=== PATIENT | female | born 1975 | race Hispanic/Latino ===

== ENCOUNTER 2023-04-23 04:27 | Emergency (ER) | payer BC, OTHER ==
[~2023-04-23] VITALS: Ht 162.6 cm; Wt 96.2 kg
[~2023-04-23 04:27] MED LIST: ARIP5TAB13 PO; ATOR40TA69 PO; CARV12.580 PO; CYCL10TA16 PO; DEXL60CA3 PO; DULO60CA45 PO; DULO60CA64 PO; EXEN5PEN2 SQ; FENO145T PO; GABA300S3 PO; GABA800T9 PO; HYDR-3421 PO; HYDR25TA PO; INSU100C6 SQ; INSU100V12 SQ; INSU100V42 SQ; KETO10TA2 PO; LEVO175C2 PO; LEVO200 PO; LIDOP TP; LISI40TA9 PO; METF-446 PO; ONDA4TAB10 PO; PANT40GR PO; PRED20TA3 PO; PREG75CA76 PO; RIVA20TA PO; SEMA1PEN3 SQ; TRAZ-185 PO
[2023-04-23] MEDS: 0.9%NACL 1000ML 1,000 ML IV ONE (05:01)
[2023-04-23] MEDS: KETOROLAC 30MG VIAL (30MG/ML) IVP ONE (05:01)
[2023-04-23 05:02] LABS: BASOPHILS # (AUTO) 0.01 K/uL (0.00-0.20); BASOPHILS % (AUTO) 0.1 % (0.0-5.0); EOSINOPHILS # (AUTO) 0.01 K/uL (0.00-0.70); EOSINOPHILS % (AUTO) 0.1 % (0.0-8.0); HEMATOCRIT 35.4 % (36-48); IMMATURE GRANULOCYTE ABSOLUTE 0.02 K/uL (0-1); LYMPHOCYTES % (AUTO) 23.8 % (21.0-51.0); MEAN CORPUSCULAR HGB CONC 33.3 g/dL (32.0-36.0); MONOCYTES # (AUTO) 0.5 K/uL (0.1-1.0); MONOCYTES % (AUTO) 5.6 % (3.0-13.0); NEUTROPHILS # (AUTO) 5.8 K/uL (1.8-7.7); NEUTROPHILS % (AUTO) 70.2 % (40.0-77.0); PLATELET COUNT (AUTO) 334 K/uL (130-400); RED BLOOD CELL COUNT(AUTO) 4.37 MIL/uL (4.00-5.50); RED CELL DISTRIBUTION WIDTH 14.1 % (11.0-15.5); WHITE BLOOD COUNT (AUTO) 8.3 K/uL (4.8-10.8)
[2023-04-23] MEDS: KETOROLAC 30MG VIAL (30MG/ML) ONE (05:02)
[2023-04-23 05:13] LABS: CREATININE 0.9 mg/dL (0.5-1.5); POTASSIUM 3.6 mmol/L (3.5-5.1)
[2023-04-23 05:17] LABS: ALBUMIN 3.4 g/dL (3.5-5.0); BILIRUBIN,TOTAL 0.5 mg/dL (0.2-1.0); TOTAL PROTEIN, SERUM 7.6 g/dL (6.0-8.3)
[2023-04-23] MEDS: ONDANSETRON 4MG INJ IVP ONE (05:38)
[2023-04-23] MEDS: MORPHINE 4 MG SYG IVP ONE (05:39)
[2023-04-23] MEDS ORDERED: IOHEXOL 350 MG/ML 100ML INFUS..BTL IV ONE (06:09)
[2023-04-23] MEDS: 0.9%NACL 1000ML 1,000 ML IV SCH (07:10)
[2023-04-23 07:12] VITALS: BP 152/75; PULSE 83; RESP 19; O2SAT 98
== END 2023-04-23 07:31 | disposition short-term general hospital (02) ==
LOC: EDH 04:27
DX: M21.371 Foot drop, right foot (principal); I10 Essential (primary) hypertension; E11.9 Type 2 diabetes mellitus without complications; E78.00 Pure hypercholesterolemia, unspecified; Z79.84 Long term (current) use of oral hypoglycemic drugs; Z79.899 Other long term (current) drug therapy; Z98.890 Other specified postprocedural states; Z90.49 Acquired absence of other specified parts of digestive tract
CPT/HCPCS: 99285; 96374; 72133; 96361; 96375; 80053; 84703; 85025; 87040 ×2; 83605; 36415; J7030; J2405; J2270; J1885; Q9967

== ENCOUNTER 2024-04-26 22:21 | Emergency (ER) | payer BC, OTHER ==
[~2024-04-26] VITALS: Ht 162.6 cm; Wt 102.1 kg
[~2024-04-26 22:21] MED LIST changes: -ARIP5TAB13 PO; -ATOR40TA69 PO; -CARV12.580 PO; -CYCL10TA16 PO; -DEXL60CA3 PO; -DULO60CA45 PO; -DULO60CA64 PO; -EXEN5PEN2 SQ; -FENO145T PO; -GABA300S3 PO; -GABA800T9 PO; -HYDR-3421 PO; -HYDR25TA PO; -INSU100C6 SQ; -INSU100V12 SQ; -INSU100V42 SQ; -KETO10TA2 PO; -LEVO200 PO; -LIDOP TP; -LISI40TA9 PO; -METF-446 PO; -ONDA4TAB10 PO; -PRED20TA3 PO; -PREG75CA76 PO; -RIVA20TA PO; -SEMA1PEN3 SQ; -TRAZ-185 PO
[2024-04-26 23:32] LABS: BASOPHILS # (AUTO) 0.03 K/uL (0.00-0.20); BASOPHILS % (AUTO) 0.4 % (0.0-5.0); EOSINOPHILS # (AUTO) 0.03 K/uL (0.00-0.70); EOSINOPHILS % (AUTO) 0.4 % (0.0-8.0); HEMATOCRIT 36.3 % (36-48); IMMATURE GRANULOCYTE ABSOLUTE 0.03 K/uL (0-1); LYMPHOCYTES # (AUTO) 1.7 K/uL (1.0-4.8); LYMPHOCYTES % (AUTO) 23.6 % (21.0-51.0); MEAN CORPUSCULAR HEMOGLOBIN 24.8 pg (27.0-33.0); MEAN CORPUSCULAR HGB CONC 32.8 g/dL (32.0-36.0); MEAN CORPUSCULAR VOLUME 75.8 fL (79-99); MONOCYTES # (AUTO) 0.5 K/uL (0.1-1.0); MONOCYTES % (AUTO) 7.2 % (3.0-13.0); NEUTROPHILS # (AUTO) 4.9 K/uL (1.8-7.7); PLATELET COUNT (AUTO) 279 K/uL (130-400); RED BLOOD CELL COUNT(AUTO) 4.79 MIL/uL (4.00-5.50); WHITE BLOOD COUNT (AUTO) 7.3 K/uL (4.8-10.8)
[2024-04-26 23:49] LABS: CREATININE 0.8 mg/dL (0.5-1.0); MAGNESIUM 1.4 mg/dL (1.80-2.40); POTASSIUM 3.9 mmol/L (3.5-5.1)
[2024-04-26] MEDS: ketOROlac 15MG/ML VIAL (15MG/ML) IV ONE (23:53)
[2024-04-27] MEDS: 0.9%NACL 1000ML 1,000 ML IV ONE ×2 (00:17→02:01)
[2024-04-27 00:38] LABS: APPEARANCE,URINE CLOUDY (CLEAR); BACTERIA,URINE RARE /HPF (None Seen); BILIRUBIN,URINE NEGATIVE (NEGATIVE); COLOR,URINE LIGHT-YELLOW (YELLOW); GLUCOSE, URINE (UA) >=1000 mg/dL (NEGATIVE); KETONES,URINE NEGATIVE (NEGATIVE); LEUKOCYTE ESTERASE ,URINE 75 Leu/uL (NEGATIVE); NITRATE,URINE NEGATIVE (NEGATIVE); PH,URINE 5.5 (5.0-8.0); PROTEIN,URINE 50 mg/dL (NEGATIVE); SQUAMOUS EPITHELIAL CELL,UR RARE /HPF (0-2); UROBILINOGEN,URINE 0.2 mg/dL (0.2-1.0)
--- NOTE | 2024-04-27 01:32 | ERN ---
General Chief Complaint: Weakness Stated Complaint: BODY ACHES, WEAKNESS Time Seen by MD: 23:05 Time Seen by Midlevel: 23:05 Source: patient History of Present Illness Initial Comments Patient is a 25-year-old female with no significant past medical history presenting to the emergency department with low back pain that started three weeks ago. 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 Denies any fall or direct injury to the area. The pain is rated eight on a 0-10 scale. She was not taking any [id number]-[id number] medications. Has not seen a primary care doctor for this issue. Denies any fever, chills, dysuria, hematuria, or any other symptoms at this time. Allergies: Coded Allergies: No Known Drug Allergies (Unverified Allergy, Unknown, 10/23/16) Home Meds Reported Medications Levothyroxine Sodium (Levothyroxine) 175 Mcg Capsule, 175 MCG PO DAILY, CAP 02/11/23 Pantoprazole Sodium (Pantoprazole Sodium) 40 Mg Granpkt.dr, 40 MG PO DAILY, PACK 02/11/23 Past Medical History Past Medical History: Diabetes-Type II, High Cholesterol, Hypertension Past Surgical History: Other Surgical History Other: BACK SURGERY Family History Family History: HTN Social History Social History: Negative ROS Dictation CONSTITUTIONAL: Negative except for HPI HEAD/FACE: Negative except for HPI EENT: Negative except for HPI RESPIRATORY: Negative except for HPI GASTROINTESTINAL/ABDOMINAL: Negative except for HPI GENITOURINARY: Negative except for HPI MUSCULOSKELETAL: Negative except for HPI INTEGUMENTARY: Negative except for HPI NEUROLOGICAL/PSYCH: Negative except for HPI HEMATOLOGIC/LYMPHATIC: Negative except for HPI All Systems Negative, Except as noted above. 13 point review of systems assessed and all negative except for above. Physical Exam Physical Exam Dictation Vital Signs reviewed General Appearance: Alert, oriented x 3, no acute distress, well developed, nourished. Head and Face: non-traumatic. Eyes: PERRL, pink conjunctivas, eyelid no trauma, anterior chamber with arcus senilis. Ears: Pinnas intact and no signs of trauma or erythema ear canals clear and no discharge TM no erythema Nose: No discharge, no bleeding. Oropharynx: Mouth normal, tongue pink, pharynx clear,no erythema, tonsils no exudates, no abscesses noted, mucous membrane moist Neck: Supple, non-tender, no thyromegaly, no masses, no JVD, no bruits Breast:Deferred Chest:No tenderness, no crepitus, no paradoxical movement, no retractions Lungs:Clear, well-ventilated, symmetric, no rales, no wheezing, no rhonchi, no stridor, good breath sounds bilaterally Heart: Regular rate, regular rhythm, no murmur, no gallops Vascular: no peripheral edema, Abdomen: Soft, positive bowel sounds, nondistended, no guarding, nontender, no rebound, no masses no hepatomegaly, no splenomegaly, no Sanchez's sign, no hernias. Rectal: Deferred Genital: Deferred Neurological: Normal speech, motor function intact, sensory function intact Musculoskeletal: Neck nontender, full range of motion, back nontender, full range of motion, Extremities: nontender, full range of motion Skin: Color pink, dry, no turgor, no rash, no lacerations, no abrasions, no contusions. Lymphatic: Deferred Results Laboratory and Microbiology Lab and Micro Result Laboratory Tests Test 04/26/24 22:44 04/26/24 23:34 04/26/24 23:50 04/26/24 23:54 White Blood Count 7.3 K/uL (4.8-10.8) Red Blood Count 4.79 MIL/uL (4.00-5.50) Hemoglobin 11.9 g/dL (12.0-16.0) L Hematocrit 36.3 % (36-48) Mean Corpuscular Volume 75.8 fL (79-99) L Mean Corpuscular Hemoglobin 24.8 pg (27.0-33.0) L Mean Corpuscular Hemoglobin Concent 32.8 g/dL (32.0-36.0) Red Cell Distribution Width 14.0 % (11.0-15.5) Platelet Count 279 K/uL (130-400) Mean Platelet Volume 10.6 fL (7.5-10.5) H Immature Granulocyte % (Auto) 0.4 % (0-1) Neutrophils (%) (Auto) 68.0 % (40.0-77.0) Lymphocytes (%) (Auto) 23.6 % (21.0-51.0) Monocytes (%) (Auto) 7.2 % (3.0-13.0) Eosinophils (%) (Auto) 0.4 % (0.0-8.0) Basophils (%) (Auto) 0.4 % (0.0-5.0) Neutrophils # (Auto) 4.9 K/uL (1.8-7.7) Lymphocytes # (Auto) 1.7 K/uL (1.0-4.8) Monocytes # (Auto) 0.5 K/uL (0.1-1.0) Eosinophils # (Auto) 0.03 K/uL (0.00-0.70) Basophils # (Auto) 0.03 K/uL (0.00-0.20) Absolute Immature Granulocyte (auto 0.03 K/uL (0-1) Nucleated Red Blood Cells 0.0 % (0.0-0.19) Red Blood Cell Morphology See comments Sodium Level 133 mmol/L (136-145) L Potassium Level 3.9 mmol/L (3.5-5.1) Chloride Level 97 mmol/L (101-111) L Carbon Dioxide Level 27 mmol/L (21-32) Blood Urea Nitrogen 14 mg/dL (7-18) Creatinine 0.8 mg/dL (0.5-1.0) Glomerular Filtration Rate Calc 91 mL/min (>90) Random Glucose 399 mg/dL (70-105) H Total Calcium 9.3 mg/dL (8.5-10.1) Magnesium Level 1.40 mg/dL (1.80-2.40) L Whole Blood Glucose 366 MG/DL (70-110) H Whole Blood Ketones Quantitative 0.3 mmol/L (0.0-0.6) Lactic Acid Level 1.7 mmol/L (0.8-2.5) Urine Color LIGHT-YELLOW (YELLOW) Urine Appearance CLOUDY (CLEAR) H Urine pH 5.5 (5.0-8.0) Urine Specific [place] 1.014 (1.001-1.031) Urine Protein 50 mg/dL (NEGATIVE) H Urine Glucose (UA) >=1000 mg/dL (NEGATIVE) H Urine Ketones NEGATIVE mg/dL (NEGATIVE) Urine Occult Blood +- (TRACE) (NEGATIVE) H Urine Nitrate NEGATIVE (NEGATIVE) Urine Bilirubin NEGATIVE mg/dL (NEGATIVE) Urine Urobilinogen 0.2 mg/dL (0.2-1.0) Urine Leukocyte Esterase 75 Hali/uL (NEGATIVE) H Urine RBC 2-5 /HPF (0-1) H Urine WBC 11-25 /HPF (0-1) H Urine Squamous Epithelial Cells RARE /HPF (0-2) Urine Bacteria RARE /HPF (None Seen) Test 04/27/24 00:27 04/27/24 01:54 04/27/24 02:39 Whole Blood Glucose 331 MG/DL (70-110) H 324 MG/DL (70-110) H 267 MG/DL (70-110) H Labs Reviewed?: Yes MDM MDM: Patient is a 48-year-old female with a past medical history of uncontrolled diabetes presenting to the emergency department for evaluation of generalized pain. Patient states she has pain all over her entire body. She states these symptoms are similar to the previous time she was in DKA. Denies any nausea vomiting, chest pain, or any other symptoms at this time. Physical examination patient is in no acute distress. Vital signs are stable. Patient is nontoxic appearing. CBC shows no leukocytosis. Hemoglobin is stable at 11.9. Platelets are normal at 279. Chemistries show a normal anion gap. Sugar is 399. Bicarb was normal at 27. Kidney function is normal. Lactic acid is negative. Ketones are negative. The patient was not in DKA at this time. Urinalysis shows glucosuria with trace amount of leuk esterase however the patient was not having any urinary symptoms. Patient was given 2 L of IV fluids and 5 units of regular insulin. Glucose trending downward with a sugar of 267. Patient will be discharged home with supportive management. Differential diagnosis: DKA, uncontrolled diabetes, electrolyte abnormality, dehydration There are no social concerns with this patient. Prescription drug management Prescriptions will include: None Medical management and examination interpretation discussions were had by me with other qualified healthcare professionals as indicated for the patient's care. ED Course Orders Procedure Category Date Status Time Cbc With Differential LAB 04/26/24 Complete 23:24 Basic Metabolic Panel LAB 04/26/24 Complete 23:24 Magnesium LAB 04/26/24 Complete 23:24 0.9%Nacl 1000ml (Ns PHA 04/26/24 Complete 1000ml) 23:30 Lactic Acid (Removed) LAB 04/26/24 Complete 23:40 Ketorolac PHA 04/27/24 Complete Tromethamine 15mg/Ml 00:00 Ketone Blood LAB 2/8/25 Complete Quantitative 23:40 Urinalysis LAB 04/26/24 Complete W/Microscopic 23:54 Culture Urine TRAM 04/26/24 In Process 23:50 0.9%Nacl 1000ml (Ns PHA 04/27/24 Complete 1000ml) 01:00 Insulin Regular, PHA 04/27/24 Complete Human 3ml (Humulin R 02:00 Current Medications Medications (Trade) Dose Ordered Sig/Shiraz Route PRN Reason Start Time Stop Time Status Last Admin Dose Admin Insulin Human Regular (humuLIN R 100 UNIT/ML 3ML) 5 unit ONCE ONCE SQ 04/27/24 02:00 04/27/24 02:01 DC 04/27/24 02:08 Ketorolac Tromethamine (toRADol) 15 mg ONCE ONCE IV 04/27/24 00:00 04/27/24 00:01 DC 04/26/24 23:53 Sodium Chloride 1,000 ml @ 0 mls/hr ONCE ONCE IV 04/26/24 23:30 04/26/24 23:31 DC 04/27/24 00:17 Sodium Chloride 1,000 ml @ 0 mls/hr ONCE ONCE IV 04/27/24 01:00 04/27/24 01:01 DC 04/27/24 02:01 Vital Signs Date Time Temp Pulse Resp B/P (MAP) Pulse Ox O2 Delivery O2 Flow Rate FiO2 04/27/24 02:21 99.1 91 17 137/77 100 Room Air* 0 21 04/26/24 22:23 99.7 105 17 171/104 100 Room Air 0 04/26/24 22:22 99.7 105 17 171/104 100 Room Air* 0 21 DX & DISP Disposition: Discharge Departure Impression: Primary Impression: Diabetes mellitus with hyperglycemia Condition: Stable Additional Instructions: Your blood work today shows an elevated glucose level of 399. At this time you are not in DKA. You were given IV fluids and your blood glucose is improving. You will need to follow up with your primary care doctor for further evaluation. Referrals: SELF,REFERRAL (PCP) I have reviewed the case, and I agree with, Diagnosis and Plan I performed the substantive portion of the visit. I have reviewed and personally made and approve the management plan that is documented in the note by myself or the J CARLOS. I acknowledge for responsibility for the patient's management plan. SHILA MCGEE Apr 27, 2024 01:32
[2024-04-27] MEDS: INSULIN humuLIN R 100 UNIT/ML 3ML SQ ONE (02:08)
--- NOTE | 2024-04-27 04:30 | NUR ---
FF UP WITH [facility] VIA PHONE CALL, STILL ON THE QUEUE FOR TRANSPORT
[2024-04-27 07:40] VITALS: BP 158/84; PULSE 89; RESP 16; TEMP 99.1; O2SAT 98
--- NOTE | 2024-04-27 08:41 | NUR ---
PER TC FROM DISPATCH, PT IS STILL ON THE LIST PENDING TRANSPORT TO HOME.
--- NOTE | 2024-04-27 09:39 | NUR ---
0930 PER GAYATHRI RN, [facility] CALLING BACK AGAIN REQUESTING FORM FOR PICK BE FAXED AGAIN, INFOMED CHARGE NURSE PRISCILLA BARROSO. PER CHARGE NURSE WILL SPEAK TO EMT ON ARRIVAL WITH ORIGINAL DOCUMENTATION. PT HAS BEEN WAITING FOR [employer]AT[employer]ER SINCE MIDNIGHT, FOURTH CALL FOR STATUS. PER [facility] DISPATCH PERSON WE ARE TOLD REPEATEDLY (PT IS ON THE LIST ON THE WAY, RE FAX DOCUMENTS AGAIN) TIME NOW 0938. STILL PENDING ARRIVAL OF EMT TRANSPORT UNIT.
--- NOTE | 2024-04-27 09:39 | NUR ---
PRISCILLA DAMON CHARGE NURSE CALLED AT 0817, FOR ETA STATUS, WAS TOLD DOCUMENTATION NEED TO BE FAXED AGAIN, WAS FAXED AT THAT TIME.
--- NOTE | 2024-04-27 10:01 | NUR ---
EMS ARRIVED FOR TRANSPORT, PT STABLE NO DISTRESS, VITALS WNL,NO C/O PAIN. PT DIAPER CHANGED PRIOR TO DISCHARGE, NO IV REMOVED CATHETER INTACT. PT AAAOX4, SPOKE TO HER MOTHER IS AWARE OF DISCHARGE IS WAITING FOR HER ARRIVAL AT HOME. PT TOOK HER PURSE AND PERSONAL BELONGINGS.
== END 2024-04-27 10:04 | disposition home or self-care (01) ==
LOC: EDH 22:21
DX: E11.65 Type 2 diabetes mellitus with hyperglycemia (principal); E78.00 Pure hypercholesterolemia, unspecified; I10 Essential (primary) hypertension; Z79.890 Hormone replacement therapy; Z79.899 Other long term (current) drug therapy
CPT/HCPCS: 99284; 96374; 83735; 80048; 85025; 87086 ×2; 87186; 82948 ×4; 83605; 82010 ×2; 81001; 36415; 96361; 96372; J1885; J7030 ×2; J1815

== ENCOUNTER 2024-07-28 12:22 | Emergency (ER) | payer OTHER ==
[~2024-07-28] VITALS: Ht 162.6 cm; Wt 103.4 kg
[~2024-07-28 12:22] MED LIST changes: -LEVO175C2 PO; +LEVO175C3 PO
[2024-07-28 12:24] VITALS: BP 141/79; PULSE 95; RESP 20; TEMP 98.5
[2024-07-28] MEDS ORDERED: CYCL-309 PO (12:38)
[2024-07-28] MEDS ORDERED: IBUP-2077 PO (12:38)
--- NOTE | 2024-07-28 12:40 | ERN ---
ED Note History of Present Illness Stated Complaint: BACK PAIN Chief Complaint: Low Back Pain/Injury Time Seen by MD: 12:25 Dictation: PATIENT IS A 49-YEAR-OLD FEMALE COMING IN VIA EMS COMPLAINING OF BILATERAL LOWER BACK PAIN POSTERIORLY THAT RADIATES DOWN BOTH LOWER EXTREMITIES. SHE STATES THE CHANGES ARE NOT NEW, SHE STATES SHE IS �STATUS POST LUMBAR SURGERY BY DR. MIKE AT [facility] TWO WEEKS AGO. � SHE DENIES ANY CHANGE IN BOWEL OR BLADDER FUNCTION STATES SHE DID NOT GO BACK TO THAT FACILITY BECAUSE �SHE WOULD NOT LIKE THE SERVICE�. SHE [place] JUST DOWN HERE VISITING HER MOTHER. SHE STATES THIS IS THE 2ND TIME �SHE HAS NEEDED NEUROSURGERY WHILE SHE IS VISITING HER MOTHER AND SHE GOES TO [facility]. Allergies: Coded Allergies: No Known Drug Allergies (Unverified Allergy, Unknown, 10/23/16) Home Meds Active Scripts Cyclobenzaprine HCl (Cyclobenzaprine HCl) 10 Mg Tablet, 1 TAB PO TID for muscle spasms for 10 Days, #30 TAB 0 Refills Prov:DAVIS SHERIFF NP 07/28/24 Ibuprofen (Ibuprofen 800 mg Tab) 800 Mg Tab, 800 MG PO Q8H PRN for fever or pain, #30 TAB 0 Refills Prov:DAVIS SHERIFF NP 07/28/24 Reported Medications Levothyroxine Sodium (Levothyroxine) 175 Mcg Capsule, 175 MCG PO DAILY, CAP 02/11/23 Pantoprazole Sodium (Pantoprazole Sodium) 40 Mg Granpkt.dr, 40 MG PO DAILY, PACK 02/11/23 Past Medical History Past Medical History: Diabetes-Type II, High Cholesterol, Hypertension Surgical History: Other Surgical History Other: BACK SURGERY Family History: HTN Social History: Negative History: Not Applicable RN Note Reviewed/Agreed w/PFSH: Yes Review of System Dictation CONSTITUTIONAL: NEGATIVE EXCEPT FOR HPI HEAD/FACE: NEGATIVE EXCEPT FOR HPI EENT: NEGATIVE EXCEPT FOR HPI RESPIRATORY: NEGATIVE EXCEPT FOR HPI GASTROINTESTINAL/ABDOMINAL: NEGATIVE EXCEPT FOR HPI GENITOURINARY: NEGATIVE EXCEPT FOR HPI MUSCULOSKELETAL: NEGATIVE EXCEPT FOR HPI BILATERAL LUMBAR PAIN WITH SCIATICA BILATERAL/CHRONIC INTEGUMENTARY: NEGATIVE EXCEPT FOR HPI NEUROLOGICAL/PSYCH: NEGATIVE EXCEPT FOR HPI HEMATOLOGIC/LYMPHATIC: NEGATIVE EXCEPT FOR HPI ALL SYSTEMS NEGATIVE, EXCEPT NOTED ABOVE. 13 POINT REVIEW OF SYSTEMS ASSESSED AND ALL NEGATIVE EXCEPT FOR ABOVE. Initial Vital Sign VS Vital Signs Date Time Temp Pulse Resp B/P (MAP) Pulse Ox O2 Delivery O2 Flow Rate FiO2 07/28/24 12:24 98.4 95 20 141/79 97 Room Air 0 Physical Exam Dictation VITAL SIGNS REVIEWED GENERAL APPEARANCE: ALERT, ORIENTED X 3, MODERATE ACUTE DISTRESS, WELL DEVELOPED, NOURISHED. HEAD AND FACE: NON-TRAUMATIC. EYES: PERRL, PINK CONJUNCTIVAS, EYELID NO TRAUMA, ANTERIOR CHAMBER WITH ARCUS SENILIS. EARS: PINNAS INTACT AND NO SIGNS OF TRAUMA OR ERYTHEMA EAR CANALS CLEAR AND NO DISCHARGE TM NO ERYTHEMA NOSE: NO DISCHARGE, NO BLEEDING. OROPHARYNX: MOUTH NORMAL, TONGUE PINK, PHARYNX CLEAR,NO ERYTHEMA, TONSILS NO EXUDATES, NO ABSCESSES NOTED, MUCOUS MEMBRANE MOIST NECK: SUPPLE, NON-TENDER, NO THYROMEGALY, NO MASSES, NO JVD, NO BRUITS BREAST:DEFERRED CHEST:NO TENDERNESS, NO CREPITUS, NO PARADOXICAL MOVEMENT, NO RETRACTIONS LUNGS:CLEAR, WELL-VENTILATED, SYMMETRIC, NO RALES, NO WHEEZING, NO RHONCHI, NO STRIDOR, GOOD BREATH SOUNDS BILATERALLY HEART: REGULAR RATE, REGULAR RHYTHM, NO MURMUR, NO GALLOPS VASCULAR: NO PERIPHERAL EDEMA, ABDOMEN: SOFT, POSITIVE BOWEL SOUNDS, NONDISTENDED, NO GUARDING, NONTENDER, NO REBOUND, NO MASSES NO HEPATOMEGALY, NO SPLENOMEGALY, NO SÁNCHEZ'S SIGN, NO HERNIAS. RECTAL: DEFERRED GENITAL: DEFERRED NEUROLOGICAL: NORMAL SPEECH, MOTOR FUNCTION INTACT, SENSORY FUNCTION INTACT MUSCULOSKELETAL: NECK NONTENDER, FULL RANGE OF MOTION, DIFFUSE LUMBOSACRAL TENDERNESS WITH WELL GRANULATING MIDLINE INCISION TO LUMBAR SPINE. EXTREMITIES: NONTENDER, FULL RANGE OF MOTION SKIN: COLOR PINK, DRY, NO TURGOR, NO RASH, NO LACERATIONS, NO ABRASIONS, NO CONTUSIONS. LYMPHATIC: DEFERRED Results (Laboratory/Radiology) Labs Reviewed?: Yes ED Course ED Course Orders Procedure Category Date Status Time Ketorolac 60mg/2ml PHA 07/28/24 Complete (Toradol 60mg/2ml) 13:00 Cyclobenzaprine Hcl PHA 07/28/24 Complete (Cyclobenzaprine Hcl 13:00 Dexamethasone 4mg/Ml PHA 07/28/24 Complete 1ml Vial (Dexametha 13:00 Current Medications Medications (Trade) Dose Ordered Sig/Shiraz Route PRN Reason Start Time Stop Time Status Last Admin Dose Admin Cyclobenzaprine HCl (Cyclobenzaprine HCl) 10 mg ONCE ONCE PO 07/28/24 13:00 07/28/24 13:01 DC Dexamethasone Sodium Phosphate (dexaMETHasone 4MG/ML 1ML VIAL) 8 mg ONCE ONCE IM 07/28/24 13:00 07/28/24 13:01 DC Ketorolac Tromethamine (toRADol 60MG/ 2ML) 60 mg ONCE ONCE IM 07/28/24 13:00 07/28/24 13:01 DC Vital Signs Date Time Temp Pulse Resp B/P (MAP) Pulse Ox O2 Delivery O2 Flow Rate FiO2 07/28/24 12:24 98.4 95 20 141/79 97 Room Air 0 1232/PATIENT AWARE THAT NO LABS OR IMAGING WE WILL BE INDICATED. SHE WILL BE GIVEN PAIN MEDS AND TOLD TO FOLLOW UP WITH DR. MIKE, HER SURGEON SOON POSSIBLE. Medical Decision Making MDM MEDICAL DISCHARGE MAKING IS BASED ON EMPIRIC TREATMENT FOR ACUTE LOW BACK PAIN WITH CHRONIC SCIATICA. PATIENT WILL BE DISCHARGED HOME WITH IBUPROFEN AND FLEXERIL TOLD TO CONTINUE ALL POSTSURGICAL INSTRUCTIONS FROM DR. MIKE FOLLOW UP WITH HIM IN THE NEXT 1-2 DAYS. DX & DISP Disposition: Discharge Departure Impression: Primary Impression: Acute exacerbation of chronic low back pain Additional Impressions: Chronic low back pain with bilateral sciatica, Status post lumbar surgery Condition: Stable Scripts Cyclobenzaprine HCl (Cyclobenzaprine HCl) 10 Mg Tablet 1 TAB PO TID for muscle spasms for 10 Days, #30 TAB 0 Refills Prov: DAVIS SHERIFF POULTRY HELPER 07/28/24 Ibuprofen (Ibuprofen 800 mg Tab) 800 Mg Tab 800 MG PO Q8H PRN for fever or pain, #30 TAB 0 Refills Prov: DAVIS SHERIFF POULTRY HELPER 07/28/24 Additional Instructions: FOLLOW-UP WITH PRIMARY CARE PROVIDER IN 1 TO 2 DAYS. TAKE MEDICATIONS DIRECTED HERE IN THE EMERGENCY ROOM. OKAY TO CONTINUE HOME MEDICATIONS UNLESS OTHERWISE DISCUSSED DURING YOUR VISIT IN THE EMERGENCY ROOM TODAY. RETURN TO YOUR NEAREST EMERGENCY ROOM IF SYMPTOMS WORSEN OR IF THERE IS NO IMPROVEMENT. CALL 911 IF YOU NEED IMMEDIATE ASSISTANCE. TAKE TYLENOL OR MOTRIN [id number] NEEDED AND IF NO CONTRAINDICATIONS ARE PRESENT. INCREASE ORAL HYDRATION. A WOUND CULTURE OR URINE CULTURE WAS ORDERED HERE IN THE EMERGENCY ROOM DEPARTMENT PLEASE FOLLOW-UP WITH PRIMARY CARE PROVIDER AND ADVISE THEM TO GET REPEAT PORTS FROM OUR FACILITY. IF YOU HAD ANY SRAVANI WRAP/SPLINTS THAT WERE APPLIED HERE, PLEASE DO NOT REMOVE THEM UNTIL YOU SEE YOUR PRIMARY CARE OR SPECIALTY. TAKE IBUPROFEN AND FLEXERIL EVERY 8 HOURS WITH FOOD FOR THE NEXT THREE DAYS. FOLLOW BACK UP WITH YOUR NEUROSURGEON, DR. MIKE IN THE NEXT 1-2 DAYS. CONTINUE ALL POSTOPERATIVE INSTRUCTIONS FROM DR. MIKE. Referrals: SELF,REFERRAL (PCP) Time of Disposition: 12:36 I have reviewed the case, and I agree with, Diagnosis and Plan DAVIS SHERIFF POULTRY HELPER July 28, 2024 12:40 DESHAWN RODGERS DO July 28, 2024 18:48
[2024-07-28] MEDS: ketOROlac 60 MG VIAL (30MG/ML) IM ONE (12:46)
[2024-07-28] MEDS: CYCLOBENZAPRINE HCL 10 MG TABLET PO ONE (12:46)
[2024-07-28] MEDS: dexaMETHasone SOD PHOSPHATE 4 MG/ML 1ML VIAL IM ONE (12:46)
== END 2024-07-28 13:10 | disposition home or self-care (01) ==
LOC: EDH 12:22
DX: M54.41 Lumbago with sciatica, right side (principal); M54.42 Lumbago with sciatica, left side; E11.9 Type 2 diabetes mellitus without complications; E78.00 Pure hypercholesterolemia, unspecified; I10 Essential (primary) hypertension; Z79.890 Hormone replacement therapy; Z79.899 Other long term (current) drug therapy
CPT/HCPCS: 99283; J1100; J1885